=== PATIENT | male | born 1955 | race Caucasian/White ===

== ENCOUNTER → 2021-02-07 | Outpatient (CLI) | payer BC, MEDICARE ==
[~2021-02-07] MED LIST: AMIODARONE HCL200 MG PO; CARVEDILOL25 MG PO; CLOPIDOGREL75 MG PO; ELIQUIS5 MG PO; ENTRESTO 49 MG1 EACH PO; FAMOTIDINE20 MG PO; FUROSEMIDE20 MG PO; LIPITOR80 MG PO; POTASSIUM CHLO10 ME1 PO; ROPINIROLE HCL0.5 MG PO; VITAMIN D; ZOLOFT25 MG PO
[2021-02-07 10:15] LABS: HEMOGLOBIN 15.1 gm/dl (14.0-17.5); RED BLOOD COUNT 4.9 M/UL (4.20-5.50); WHITE BLOOD COUNT 4.2 K/UL (4.5-11.0)
[2021-02-07 10:32] LABS: BUN/CREATININE RATIO 19 (0-10)
== END ==
LOC: OPSV2 09:22 → EDSTATUS 09:30
PROVIDERS: Orthopaedic Surgery
DX: Z01.818 Encounter for other preprocedural examination (principal); M17.12 Unilateral primary osteoarthritis, left knee
CPT/HCPCS: 80048; 85025; 87081; 93005

== ENCOUNTER → 2021-02-19 | Outpatient (CLI) | payer BC, MEDICARE ==
[~2021-02-19] MED LIST changes: +FLU VACCINE IM; +HYDROCODON-ACE1 EAC6 PO; +LO-DOSE ASPIRIN81 MG PO; +LOVENOX SY40 MG/0.4 SQ; -VITAMIN D; +VITAMIN D 40400 UNIT PO
[2021-02-19 11:16] LABS: BUN/CREATININE RATIO 18 (0-10)
== END ==
LOC: LAB 10:02
PROVIDERS: Orthopaedic Surgery
DX: Z01.812 Encounter for preprocedural laboratory examination (principal)
CPT/HCPCS: 36415; 80048; 86850; 86900; 86901

== ENCOUNTER 2021-02-20 06:59 | Day surgery (SDC) | payer BC, MEDICARE ==
[~2021-02-20] VITALS: Ht 177.8 cm; Wt 118.9 kg
[~2021-02-20 06:59] MED LIST changes: -FLU VACCINE IM; -HYDROCODON-ACE1 EAC6 PO; -LO-DOSE ASPIRIN81 MG PO; -LOVENOX SY40 MG/0.4 SQ
[2021-02-20] MEDS ORDERED: LO-DOSE ASPIRIN81 MG PO (07:21)
[2021-02-20] MEDS ORDERED: LOVENOX SY40 MG/0.4 SQ (07:23)
[2021-02-20] MEDS ORDERED: HYDROCODON-ACE1 EAC6 PO (13:38)
[2021-02-21 04:23] LABS: HEMOGLOBIN 13.7 gm/dl (14.0-17.5); RED BLOOD COUNT 4.28 M/UL (4.20-5.50)
[2021-02-21 04:42] LABS: BUN/CREATININE RATIO 28 (0-10)
--- NOTE | 2021-02-21 05:42 | NUR ---
CRYOTHERAPY (POLAR ICE) APPLIED AT 1845 ON ASSESSMENT. POLAR ICE REMOVED AT 2030. POLAR ICE RE-APPLIED AT 2300. POLAR ICE REMOVED AT 0120. POLAR ICE RE-APPLIED AT 0330. POLAR ICE REMOVED AT 0530. WILL ALERT MISHA WALLACE TO RE-APPLY AT 0730.
[2021-02-21] MEDS ORDERED: FLU VACCINE IM (11:49)
== END 2021-02-21 15:49 | disposition home health service (06) ==
LOC: OR 06:59 → EDSTATUS 11:15 → M/S 15:00 → OR 02-21 15:49
PROVIDERS: Orthopaedic Surgery
DX: M17.12 Unilateral primary osteoarthritis, left knee (principal); I69.351 Hemiplegia and hemiparesis following cerebral infarction affecting right dominant side; I48.20 Chronic atrial fibrillation, unspecified; I10 Essential (primary) hypertension; E78.5 Hyperlipidemia, unspecified; G47.33 Obstructive sleep apnea (adult) (pediatric); G25.81 Restless legs syndrome; Z79.01 Long term (current) use of anticoagulants; Z79.899 Other long term (current) drug therapy; Z20.822 Contact with and (suspected) exposure to COVID-19; Z87.891 Personal history of nicotine dependence
CPT/HCPCS: 36415; 73560; 76000; 80048; 83735; 85025; 90686; 97116; 97116-GP-CQ; 97161; 97166; 97530; 97535; C1776; J0171; J0690; J1100; J1200; J1885; J2250; J2370; J2405; J2704; J2795; J3475; J7120